=== PATIENT | female | born 1980 | race American Indian/Alaskan Native ===

== ENCOUNTER 2020-09-04 05:55 | Day surgery (SDC) | payer MEDICARE ==
[2020-09-02 12:23] LABS: Hemoglobin 13.1 gm/dl (10.1-14.3); Mean Corpuscular HGB Conc 33 % (30-34); Mean Corpuscular Volume 86 fl (79-97); Platelet Count 284 K/mm3 (140-440); Red Blood Count 4.65 M/mm3 (3.65-5.03); Red Cell Distribution Width 18.2 % (13.2-15.2)
[2020-09-04] MEDS ORDERED: MIDAZOLAM 2 MG/2 ML INJ IV NR (06:00)
[2020-09-04] MEDS ORDERED: LACTATED RINGERS 1,000 ML IV SCH (06:00)
[2020-09-04] MEDS ORDERED: ACETAMINOPHEN 500 MG TAB PO SCH (06:00)
[2020-09-04] MEDS ORDERED: ceFAZolin/Water 2 GM/20 ML 2 GM/20 ML SYRINGE IV NR (06:00)
[2020-09-04] MEDS ORDERED: propofoL 200 MG/20 ML VIAL IV ONE (07:17)
[2020-09-04] MEDS ORDERED: HYDROmorphone 1 MG/1 ML INJ ONE (07:17)
[2020-09-04] MEDS ORDERED: LIDOCAINE MPF (2%) 20 MG/1 ML VIAL 5 ML ONE (07:17)
[2020-09-04] MEDS ORDERED: SILVER NITRATE APPLICATOR 1 EA TP ONE ×2 (07:18→08:38)
[2020-09-04] MEDS ORDERED: dexAMETHasone 20 MG/5 ML VIAL ONE (07:52)
[2020-09-04] MEDS ORDERED: oxyCODONE /ACETAMINOPHEN 5-325MG TAB PO PRN (08:00)
[2020-09-04] MEDS ORDERED: ONDANSETRON 4 MG/2 ML INJ IV PRN (08:00)
[2020-09-04] MEDS ORDERED: ONDANSETRON 4 MG/2 ML INJ ONE (08:01)
[2020-09-04] MEDS: HYDROmorphone 1 MG/1 ML INJ IV PRN ×4 (08:58→10:00)
[2020-09-04 10:46] VITALS: BP 127/77
== END 2020-09-04 10:30 | disposition home or self-care (01) ==
LOC: OR 05:55
PROVIDERS: ATTEND Obstetrics & Gynecology
DX: N93.8 Other specified abnormal uterine and vaginal bleeding (principal); D25.9 Leiomyoma of uterus, unspecified; Z20.822 Contact with and (suspected) exposure to COVID-19; J45.909 Unspecified asthma, uncomplicated; F32.9 Major depressive disorder, single episode, unspecified; F41.9 Anxiety disorder, unspecified; D64.9 Anemia, unspecified; Z72.89 Other problems related to lifestyle; Z79.899 Other long term (current) drug therapy; Z98.51 Tubal ligation status; Z98.890 Other specified postprocedural states
CPT/HCPCS: 36415; 58563; 84295; 84703; 85027; 88305; C1782; J0690; J1100; J1170; J2250; J2405; J2704; J7120; U0003